=== PATIENT | male | born 1960 | race Caucasian/White ===

== ENCOUNTER 2018-05-02 16:23 | Emergency (ER) | payer MEDICAID, SELFPAY ==
[2018-05-02 16:24] VITALS: BP 164/118; PULSE 75; RESP 16; TEMP 37.1; O2SAT 95; BMI 43.4
--- NOTE | 2018-05-02 17:16 | CT_ITS ---
STUDY: CT ABDOMEN AND PELVIS WITHOUT CONTRAST REASON FOR EXAM: Male, 57 years old. Right groin pain. RADIATION DOSAGE (If Supplied By Facility): CTDIvol = ( 23.78 ) mGy, DLP = ( 1336.53 ) mGycm TECHNIQUE: Transaxial images were obtained from the dome of the diaphragm to the symphysis pubis without oral contrast, and without intravenous contrast. Sagittal and coronal images were reconstructed. Individualized dose optimization techniques were used for this CT. COMPARISON: None. FINDINGS: The visualized lung bases are unremarkable. The visualized portions of the heart are within normal limits. There is decreased attenuation of the liver consistent with steatosis. Normal gallbladder and extrahepatic biliary system. Normal spleen. Normal pancreas. Normal bilateral adrenal glands. Right kidney has no acute abnormalities. There is a 1.6 cm probable cyst of the lower pole. No hydronephrosis. Left kidney is within normal limits. Evaluation of the GI tract is limited by absence of oral contrast. Cannot exclude stomach wall thickening. No dilated loops of bowel or evidence for obstruction. Cannot exclude segmental thickening of the monzon of the small or large bowel. Cannot exclude enteritis or colitis. Moderate diffuse fecal retention. There has been an appendectomy. Normal abdominal aorta. Normal inferior vena cava. Normal retroperitoneum. Normal urinary bladder. There are prostatic calcifications. Normal abdominal wall. Normal osseous structures. CT/Abdomen/Pelvis without Cont IMPRESSION: No definite acute abnormality. Electronically Signed: Mk Denton MD at 18:31 EST , Service support ,
--- NOTE | 2018-05-02 17:17 | US_ITS ---
STUDY: SCROTUM ULTRASOUND REASON FOR EXAM: Male, 57 years old. Pain and swelling TECHNIQUE: Ultrasound evaluation of the scrotum was performed with color Doppler and static desouza-scale imaging. COMPARISON: None. FINDINGS: RIGHT TESTICLE INTRATESTICULAR: There is a normal size of the right testicle. The right testicle measures 4.0 x 3.1 x 2.5 cm. There is a homogenous echotexture. There is normal arterial and normal venous vascularity. There is no demonstrated right testicular mass or cyst. EXTRATESTICULAR: The epididymis is normal in size. The epididymis head measures 0.9 cm. There is normal vascularity of the epididymis. There is no demonstrated epididymal cystic structure. There is a large hydrocele. There are septations. There is no demonstrated varicocele. There is no demonstrated extratesticular mass or cyst. LEFT TESTICLE INTRATESTICULAR: There is a normal size of the left testicle. The left testicle measures 5.0 x 2.9 x 2.8 cm. There is a homogenous echotexture. There is normal arterial and normal venous vascularity. There is no demonstrated left testicular mass or cyst. EXTRATESTICULAR: The epididymis is normal in size. The epididymis head measures 1.4 cm. There is normal vascularity of the epididymis. There is no demonstrated epididymal cystic structure. There is a moderate size hydrocele. There is no demonstrated varicocele. There is no demonstrated extratesticular mass or cyst. US/Testicular with Arterial Flow IMPRESSION: Normal bilateral testicles. No evidence for torsion. Bilateral moderate to large hydroceles, larger on the right. Electronically Signed: Mk Denton MD at 18:23 EST , Service support ,
--- NOTE | 2018-05-02 17:21 | ED.DCSUM_ITS ---
- ER Visit Summary Date of Service: 05/02/18 Chief Complaint: Groin pain History of Present Illness: The patient is a 57 M presenting with right-sided groin pain and right lower quadrant abdominal pain. He states this began a month ago. He went to [facility] today and was sent to the ED for further evaluation. He has history of previous appendectomy and previous right testicular surgery. He states his testicular surgery was 15 years ago he does not know what was done at that time. He complains of pain and swelling in his right groin for the past month. He denies fever. Denies dysuria. He complains of hematuria which has been persistent since last summer. Denies other complaints. Physical Examination: Vitals are stable. Patient is afebrile. Alert no acute distress. HEENT exam is unremarkable. Neck is supple. Lungs are clear and equal bilaterally. Heart is regular rate and rhythm. Abdomen is soft nontender nondistended. right testicular tenderness, normal lie Extremities are unremarkable. Skin is warm and dry. Remainder of exam is unremarkable. Emergency Department Course and Treatment: Testicular ultrasound shows normal bilateral testicles. No evidence for torsion. Bilateral moderate to large hydroceles, larger on the right. CT abdomen pelvis shows no acute process. CBC unremarkable other than hemoglobin 19.6. Chemistries unremarkable. Urinalysis unremarkable. On reevaluation, patient is resting comfortably. Discussed with Dr. Lowe for outpatient follow-up. Advised return to ED if worsening complaints. Disposition: Discharge home Impression: Groin pain, bilateral hydroceles This note was generated with Minted dictation software. It may contain incorrect words, spelling, and punctuation that were not noted in review of the chart prior to signing ED Disposition - Plan for ED Patient: Instructions: ED Hydrocele Type Not Specified, ED Neck Back Pain General Referrals: Derrick Lowe MD [STAFF PHYSICIAN] -
[2018-05-02] MEDS: Ondansetron 4 MG/2 ML Vial IV (17:30)
[2018-05-02] MEDS: Morphine 4 MG/ML Syringe IV (17:30)
[2018-05-02 17:38] LABS: Anion Gap 8 (5-15); BUN 14 mg/dL (7-18); BUN/Creat Ratio 14.8 RATIO (10-20); Calcium,Total 9.3 mg/dL (8.5-10.1); Chloride 103 mmol/L (98-107); Creatinine, Serum 0.94 mg/dL (0.70-1.30); EST Glomerular Filtration Rate 88 mL/min (>60); Est Glom Filt Rate - Afr Amer 106 mL/min (>60); Estimated Creatinine Clearance 100.35 ml/min; Glucose 114 mg/dL (74-106); Potassium 4.4 mmol/L (3.5-5.1); Sodium Level 140 mmol/L (136-145)
[2018-05-02 17:45] LABS: Absolute Lymphocyte Count 2.39 X10^3/ul (0.83-4.51); Absolute Neutrophil Count 4.6 X10^3/uL (2.0-7.7); Basophil# 0.02 X10^3/uL; Basophil% 0.2 % (0-1); Eosinophil# 0.26 X10^3/uL; Eosinophils% 3.2 % (0-5); Lymphocyte # 2.39 X10^3/ul (4.0); Mean Corp Hgb Conc 34.1 g/gl (32-36); Mean Corpuscular Hgb 32.3 pg (27.0-32.0); Mean Corpuscular Volume 94.6 fL (80-94); Monocyte# 0.91 X10^3/uL; Monocyte% 11.1 % (0-10); Neutrophil # 4.64 X10^3/uL (2.7-7.7); Neutrophil % 56.4 % (47-70); Platelet Count 167 K/mm3 (150-450); RBC Distribution Width CV 12.2 % (11.6-14.6); RBC Distribution Width SD 42.6 fl (35.1-43.9); Red Blood Count 6.07 M/mm3 (4.6-6.2); White Blood Count 8.2 K/mm3 (4.4-11.0)
[2018-05-02 17:46] LABS: Hematocrit 57.4 % (40-54)
[2018-05-02 17:47] LABS: Hemoglobin 19.6 g/dl (13.0-16.5); POSITIVE COUNT NO; POSITIVE DIFFERENTIAL NO; POSITIVE MORPHOLOGY NO
[2018-05-02 18:35] LABS: Bacteria 0 SEEN /hpf (None Seen); Mucous, Urine 0 SEEN /hpf (<or=2+); Red Blood Cells-Urine 0 SEEN /hpf (0-5); Squamous Epithelial Cells - UA 0 SEEN /hpf (0-5); White Blood Cells 0 SEEN /hpf (0-5)
[2018-05-02 18:37] VITALS: RESP 14
[2018-05-02 18:52] LABS: Color, Urine Yellow (Yellow); Glucose, Dipstick Normal (Normal); Ketone-Dipstick Negative (Negative); Leukocyte Esterase-Dipstick Negative /ul (Negative); Nitrite-Dipstick Negative (Negative); Occult Blood-Urine Negative /ul (Negative); Protein-Dipstick 30 mg/dl (Negative); Urine Bilirubin Dipstick Negative (Negative); Urine Clarity Clear (Clear); Urine Urobilinogen Normal (Normal)
--- NOTE | 2018-05-02 20:03 | ED.DEP ---
ED Disposition - Plan for ED Patient: Instructions: ED Hydrocele Type Not Specified, ED Neck Back Pain General Referrals: Derrick Lowe MD [STAFF PHYSICIAN] -
[2018-05-02 20:26] VITALS: RESP 18; O2SAT 98
== END 2018-05-02 20:27 | disposition home or self-care (01) ==
LOC: ED 18:51
PROVIDERS: Emergency Provider Emergency Medicine; Referring Provider Nurse Practitioner Family
DX: N43.3 Hydrocele, unspecified (principal); R10.31 Right lower quadrant pain; R31.9 Hematuria, unspecified; Z72.0 Tobacco use
CPT/HCPCS: 74176; 76870; 80048; 81001; 85025; 93976; 96374; 96375; 99283; A4216; J2405

== ENCOUNTER → 2019-08-22 | Outpatient (CLI) | payer MEDICAID, SELFPAY ==
--- NOTE | 2019-08-22 13:09 | RAD_ITS ---
STUDY: X-RAY - THORACIC SPINE REASON FOR EXAM: Male, 59 years old. MID BACK PAIN WRAPS AROUND THROUGH ANTERIOR RIBS, FELT POP 3 WKS AGO ON LEFT SIDE SHARP PAIN ANTERIOR, THIS WEEK SAME ON RT SIDE TECHNIQUE: AP and lateral view(s) of the thoracic spine were obtained. COMPARISON: None. FINDINGS: Normal kyphosis of the thoracic spine. There is no substantial scoliosis. There is demineralization of the thoracic spine with endplate spondylosis. There is multilevel disc space narrowing of the thoracic spine. The soft tissue structures are unremarkable. RAD/Thoracic Spine 3 Views IMPRESSION: Multilevel spondylosis and disc space narrowing more prominent in the mid and lower thoracic region. Electronically Signed: Berlin Myers, at 14:46 EDT , Service support ,
--- NOTE | 2019-08-22 13:09 | RAD_ITS ---
STUDY: X-RAY - BILATERAL RIBS WITH CHEST REASON FOR EXAM: Male, 59 years old. MID BACK PAIN WRAPS AROUND THROUGH ANTERIOR RIBS, FELT POP 3 WKS AGO ON LEFT SIDE SHARP PAIN ANTERIOR, THIS WEEK SAME ON RT SIDE TECHNIQUE - RIBS: 4 view(s) of the ribs. TECHNIQUE - CHEST: Single PA view of the chest. COMPARISON: Comparison is made with prior chest radiograph dated July 05, 2010. FINDINGS - RIBS : Normal visualized ribs without a demonstrated fracture. FINDINGS - CHEST: The lungs are clear and expanded. There is no demonstrated pleural abnormality. Normal size heart. Normal mediastinum and eddie. There is prominence of the pulmonary hilar arteries without peripheral pulmonary vascular congestion, suggesting pulmonary hypertension. Normal visualized aortic arch and descending thoracic aorta. Normal visualized thoracic spine. Normal visualized ribs, clavicles, and shoulders. There is no demonstrated abnormality of the visualized soft tissue structures of the upper abdomen. RAD/Ribs Naveen Min 4V w/PA Chest IMPRESSION: RIBS: Normal x-ray examination of the bilateral ribs. CHEST: Normal x-ray examination of the chest. Electronically Signed: Berlin Myers, at 14:47 EDT , Service support ,
== END | disposition home or self-care (01) ==
LOC: RAD 13:06
PROVIDERS: Referring Provider Chiropractor; Visit Provider Chiropractor
DX: S23.3XXA Sprain of ligaments of thoracic spine, initial encounter (principal)
CPT/HCPCS: 71111; 72072

== ENCOUNTER → 2020-01-02 13:33 | Outpatient (CLI) | payer MEDICAID, SELFPAY ==
--- NOTE | 2020-01-02 13:45 | RAD_ITS ---
STUDY: X-RAY - LEFT KNEE REASON FOR EXAM: Male, 59 years old. LEFT KNEE SPRAIN. PAIN TO MEDIAL SIDE OF KNEE. TECHNIQUE: 4 view(s) of the knee. COMPARISON: None. FINDINGS: The knee is intact and located with minor age-appropriate changes. Soft tissues are unremarkable. RAD/Knee 4 or More Views IMPRESSION: Unremarkable for age knee. Electronically Signed: Kaushik Suarez, at 21:11 EDT Tel , Service support ,
== END | disposition home or self-care (01) ==
LOC: RAD 13:35
PROVIDERS: Referring Provider Chiropractor; Visit Provider Chiropractor
DX: S83.92XA Sprain of unspecified site of left knee, initial encounter (principal)
CPT/HCPCS: 73564

== ENCOUNTER → 2021-10-19 | Outpatient (CLI) | payer MEDICAID, SELFPAY ==
[2021-10-19 12:38] LABS: Absolute Lymphocyte Count 2.31 X10^3/uL (0.83-4.51); Absolute Neutrophil Count 5.3 X10^3/uL (2.0-7.7); Basophil# 0.05 X10^3/uL; Basophil% 0.6 % (0-1); Eosinophil# 0.23 X10^3/uL; Eosinophils% 2.6 % (0-5); Hematocrit 53.3 % (40-54); Hemoglobin 17.7 g/dL (13.0-16.5); Lymphocyte # 2.31 X10^3/ul (0.83-4.51); Mean Corp Hgb Conc 33.2 g/dL (32-36); Mean Corpuscular Hgb 31.8 pg (27.0-32.0); Mean Corpuscular Volume 95.7 fL (80-94); Mean Platelet Vol. 9.7 fl (6.2-12.0); Monocyte# 0.96 X10^3/uL; Monocyte% 10.8 % (0-10); NRBC Flagged by Analyzer 0 % (0-5); Neutrophil # 5.32 X10^3/uL (2.7-7.7); Neutrophil % 59.8 % (47-70); Platelet Count 222 K/mm3 (150-450); RBC Distribution Width CV 11.5 % (11.6-14.6); RBC Distribution Width SD 40.8 fl (35.1-43.9); Red Blood Count 5.57 M/mm3 (4.6-6.2); White Blood Count 8.9 K/mm3 (4.4-11.0)
[2021-10-19 13:07] LABS: Hemoglobin A1c 7.3 % (3.8-5.6)
[2021-10-19 13:09] LABS: ALB/GLOB Ratio 0.9 RATIO (0.9-2.4); AST(SGOT) 33 U/L (15-37); Alanine Aminotransfer ALT/SGPT 76 U/L (16-61); Albumin, Serum 3.6 g/dL (3.2-5.0); Alkaline Phosphatase 85 U/L (45-117); Anion Gap 4 (5-15); BUN 10 mg/dL (7-18); Calcium,Total 9.2 mg/dL (8.5-10.1); Chloride 104 mmol/L (98-107); Cholesterol 162 mg/dL (200); EST Glomerular Filtration Rate 81 mL/min (>60); Est Glom Filt Rate - Afr Amer 99 mL/min (>60); Globulin 3.9 g/dL (2.2-4.2); Glucose 145 mg/dL (74-106); High Density Lipoprotein 31 mg/dL; Potassium 4.5 mmol/L (3.5-5.1); Protein, Total 7.5 g/dL (6.4-8.2); Sodium Level 137 mmol/L (136-145); Triglycerides 165 mg/dL; Very Low Density Lipoprotein 33 mg/dL (5-40)
== END | disposition home or self-care (01) ==
LOC: BIMLAB 08:29
PROVIDERS: PCP Internal Medicine; Visit Provider Internal Medicine
DX: M79.672 Pain in left foot (principal); Z13.6 Encounter for screening for cardiovascular disorders; Z13.1 Encounter for screening for diabetes mellitus
CPT/HCPCS: 36415; 80053; 80061; 83036; 84550; 85025

== ENCOUNTER 2021-10-22 09:49 | Emergency (ER) | payer MEDICAID, SELFPAY ==
[2021-10-22 09:49] VITALS: BP 134/86; PULSE 70; RESP 18; TEMP 35.8; O2SAT 97; BMI 39.6
--- NOTE | 2021-10-22 10:16 | RAD_ITS ---
STUDY: X-RAY - RIGHT FOOT CLINICAL: Male, 61 years old. pain first MTPJ w/ foot swelling TECHNIQUE: 4 view(s) of the foot. COMPARISON: None. FINDINGS: Normal talus, calcaneus, and tarsal bones. Normal visualized subtalar, talonavicular, calcaneocuboid, tarsal and tarsometatarsal articulations. Normal metatarsi. Normal metatarsophalangeal joint of the great toe. Normal tibial and fibular sesamoid bones. Normal interphalangeal joint of the great toe. Normal phalanges of the great toe. Normal second through fifth metatarsophalangeal joints. Normal interphalangeal joints and phalanges of the lesser toes. Mild soft tissue swelling is seen over the dorsum of the forefoot. There is no demonstrated fracture. RAD/Foot min 3 Views IMPRESSION: 1. Mild soft tissue swelling over the dorsum of the forefoot Electronically Signed: Douglas Cabrera MD at 11:32 EDT ,
--- NOTE | 2021-10-22 10:25 | EDS_ITS ---
HPI History of Present Illness Chief Complaint: Lower Extremity Injury Onset/Context/Timing Onset: Weeks (7) Context: Sudden Onset Timing: Continuous Quality of Pain: Burning Location: Right first ray/foot Current Severity: Severe Maximum Severity: Severe Worsened by: Touching area moving first toe Relieved by: Resting and remaining still Associated Symptoms Associated Symptoms: Negative for Parasthesia or Weakness Narrative Narrative: Patient has been having pain in the right foot for the past 7 weeks. He states he woke up 1 morning with it. He has seen urgent care twice, he states the fi rst time they put him on prednisone because they thought clinically it look like gout, he states by the time he started that he was starting to get pain at the same area of the left foot, and the prednisone completely took that away but did not take the pain in the right foot away. He went back and they put him on an unknown medication, his PCP documented that it was colchicine, he states it did not help the pain. He finished the prednisone. He went to his PCP, he had some blood work, and she started him on allopurinol several days ago and he states the pain is worse. He denies any systemic symptoms or fevers. He denies any injury to this area. The pain is focused around the right first MTPJ, he has developed a redness and erythema throughout the base of the toes and the forefoot, but the majority of it is in the first ray. That he denies any pain in the midfoot or hindfoot or ankle. He states it hurts just to have a sheet on it, especially to move it. Picking it up off the ground hurts more than to put weight on it. [facility] Medical History Essential hypertension Type 2 diabetes mellitus Home Medications albuterol sulfate 90 mcg/actuation aerosol inhaler 1 puff inhalation Q6H PRN shortness of breath or wheezing #6.7 grams 10/18/21 [Rx Last Taken Unknown] nicotine 21 mg/24 hr daily transdermal patch 1 patch transdermal DAILY #28 ea 10/18/21 [Rx Last Taken Unknown] amoxicillin 875 mg-potassium clavulanate 125 mg tablet 875 mg PO Q12H #20 TABLETS 10/22/21 [Rx Last Taken Unknown] Allergy/AdvReac Type Severity Reaction Status Date / Time No Known Allergies Allergy Verified 10/22/21 10:39 Family History (Updated 10/18/21 @ 15:09 by Charlette Dangelo) Other Family history not known due to adoption Surgical History (Updated 10/18/21 @ 15:[address] Shruti Carvajal MD) History of appendectomy Social History household members: none current occupational status: unemployed Smoking Status: Current every day smoker tobacco type: cigarettes Tobacco: How many years used: 40 Electronic Cigarette Use: not used alcohol intake: former substance use type: does not use what type of physical activity do you participate in: none do you feel safe at home: Yes ROS ROS ED Constitutional Constitutional ED: Denies chills or fever(s) Musculoskeletal Musculoskeletal: Reports extremity pain; Denies neck pain Integumentary Denies Abrasions, rash or wounds Neurologic Neurologic: Denies paresthesias or weakness EXAM Physical Exam Const Vital Signs: 10/22/21 09:49 Temperature 96.5 F L Temperature Source Temporal Pulse Rate 70 Respiratory Rate 18 Blood Pressure 134/86 H Blood Pressure Mean 102 Pulse Ox 97 Oxygen Delivery Method Room Air Positive well nourished and well developed General Appearance ED: well developed and NAD Neck full ROM and supple Back/Spine normal ROM and normal to inspection Extremity Extremity Narrative: Swollen erythematous right first MTPJ. Significant pain there with even very little short arc range of motion of the great toe. There are no other areas of significant tenderness although he is mildly tender just into the distal aspect medially in the arch. No abscess. No lymphangitis. No other areas of tenderness or limited range of motion including the rest of the toes. Brisk cap refill distally although pulses on both feet are difficult to feel. Neuro oriented x3, no focal motor deficits and no sensory deficits noted Sensorium / Orientation: alert Psych mental status grossly normal and thought process normal Skin no wounds Skin Narrative: Erythema right medial forefoot see above. No lymphangitis. No abscess. No nidus for infection. Rashes: no rashes MDM MDM MDM Narrative Medical decision making narrative: If this patient has gout, I would expect an acute flareup to worsen while on allopurinol, which seems to have happened over the last 3 days, but I would also expect him to have gotten better on prednisone which did not occur. Therefore a undertook more work-up, given that a septic arthritis is certainly in the differential although he has no reason to have that. I told the patient best way to figure this out would be to do a joint fluid aspiration. After discussing pros and cons and providing informed consent he was amenable to that and it was done see the procedure note. We did not have any crystals come back positive per the lab. Culture was sent. There was not enough fluid to do cell counts. Given this in the differential including septic arthritis, I discussed with Dr. Cote he came and saw the patient and agreed with my management and repeated the arthrocentesis, and also injected dexamethasone into the patient's joint, he agrees that this is suspicious for gout or pseudogout, we are putting the patient on antibiotics until his cultures come back, given him a boot, and he will follow-up in the office as an outpatient. Patient is comfortable with that overall plan. Lab Data Attestation: I reviewed the patient's lab results. Labs: Laboratory Results - last 24 hr 10/22/21 10/22/21 10/22/21 10:35 10:35 12:10 WBC 7.5 RBC 5.47 Hgb 17.5 H Hct 51.8 MCV 94.7 H MCH 32.0 MCHC 33.8 RDW Std Deviation 39.7 RDW Coeff of Cheryl 11.3 L Plt Count 219 MPV 9.4 Immature Gran % (Auto) 0.300 Neut % (Auto) 57.4 Lymph % (Auto) 27.4 Traverse % (Auto) 10.4 H Eos % (Auto) 4.1 Baso % (Auto) 0.4 Absolute Neuts (auto) 4.3 Absolute Lymphs (auto) 2.05 Nucleated RBC % 0 ESR 25 H Sodium 139 Potassium 4.5 Chloride 106 Carbon Dioxide 30.0 Anion Gap 3 L BUN 9 Creatinine 0.99 Estim Creat Clear Calc 90.80 Est GFR (MDRD) Af Amer 100 Est GFR (MDRD) Non-Af 82 BUN/Creatinine Ratio 9.1 L Glucose 146 H Calcium 9.5 C-React Prot Ext Range 28.20 H Fluid Source Cancelled Fluid Color Cancelled Fluid Appearance Cancelled Fluid WBC Cancelled Fluid RBC Cancelled Fluid Tot Cell Count Cancelled Fld Polynuclear WBCs # Cancelled Fld Polynuclear WBCs % Cancelled Fluid Mononuclear WBCs Cancelled Fld Mononuclear WBCs % Cancelled Fluid Neutrophils Cancelled Fluid Lymphocytes Cancelled Fluid Monocytes Cancelled Fluid Plasma Cells Cancelled Fluid Macrophages Cancelled Fld Mesothelial Cells Cancelled Fluid Other Cells Cancelled Fluid Crystals Cancelled Fluid Crystal Source Cancelled Fl Crystal Path Review Cancelled Fl Pathologist Comment Cancelled Fluid Comment 2 Cancelled 10/22/21 12:10 WBC RBC Hgb Hct MCV MCH MCHC RDW Std Deviation RDW Coeff of Cheryl Plt Count MPV Immature Gran % (Auto) Neut % (Auto) Lymph % (Auto) Traverse % (Auto) Eos % (Auto) Baso % (Auto) Absolute Neuts (auto) Absolute Lymphs (auto) Nucleated RBC % ESR Sodium Potassium Chloride Carbon Dioxide Anion Gap BUN Creatinine Estim Creat Clear Calc Est GFR (MDRD) Af Amer Est GFR (MDRD) Non-Af BUN/Creatinine Ratio Glucose Calcium C-React Prot Ext Range Fluid Source Fluid Color Fluid Appearance Fluid WBC Fluid RBC Fluid Tot Cell Count Fld Polynuclear WBCs # Fld Polynuclear WBCs % Fluid Mononuclear WBCs Fld Mononuclear WBCs % Fluid Neutrophils Fluid Lymphocytes Fluid Monocytes Fluid Plasma Cells Fluid Macrophages Fld Mesothelial Cells Fluid Other Cells Fluid Crystals SEE PATH REV Fluid Crystal Source OTHER Fl Crystal Path Review Will follow Fl Pathologist Comment Fluid Comment 2 Radiography Diagnostic Testing: Clinical Impression(s) from Imaging Studies Foot X-Ray 10/22/21 10:16 IMPRESSION: 1. Mild soft tissue swelling over the dorsum of the forefoot Electronically Signed: Douglas Cabrera MD at 11:32 EDT Reading Location ID and State: [address] [place] [address] , Service support , Procedures Other Procedures Procedure(s): Right first MTPJ arthrocentesis: After sterile prep with isopropanol followed by Betadine, freeze spray followed by local 1% lidocaine 1 cc, I initially attempted from a dorsomedial approach to insert an 18-gauge needle into the joint, since I was unable I used the 25-gauge needle that I used for the lidocaine, and 1 point the patient and I both felt the needle dropped into the joint, I aspirated as much as I could it was mostly blood, about 0.5 cc total, and then withdrew the needle on cleansed, placed a bandage no complications otherwise except for some minor discomfort. Tolerated well. Discharge Plan Triage Chief Complaint: Lower Extremity Injury ED Provider: Abelardo Lockett Dx/Rx/DC Orders Clinical Impression: Arthritis of first metatarsophalangeal (MTP) joint of right foot Instructions: ED Gout Prescriptions: New amoxicillin-pot clavulanate [amoxicillin-pot clavulanate] 875-125 mg tablet 875 mg PO Q12H Qty: 20 0RF Continued nicotine 21 mg/24 hr patch 24 hour 1 patch transdermal DAILY Qty: 28 0RF albuterol sulfate 90 mcg/actuation HFA aerosol inhaler 1 puff inhalation Q6H PRN (Reason: shortness of breath or wheezing) Qty: 6.7 0RF Discontinued prednisone 20 mg tablet See Taper PO DAILY Taper: Prednisone Taper 60 tab WITH BREAKFAST for 3 Days and 0 Hour 50 tab WITH BREAKFAST for 3 Days and 0 Hour 40 tab WITH BREAKFAST for 3 Days and 0 Hour 30 tab WITH BREAKFAST for 3 Days and 0 Hour 20 tab WITH BREAKFAST for 3 Days and 0 Hour 10 tab WITH BREAKFAST for 3 Days and 0 Hour Label Comments: take 3 tablets by mouth once daily for 3 days then 2 once daily f... (REFER TO PRESCRIPTION NOTES). colchicine 0.6 mg tablet 1 tab PO BID Label Comments: take 1 tablet by mouth twice a day for 1 day allopurinol 100 mg tablet 100 mg PO DAILY Qty: 30 1RF Primary Care Provider: Shruti Carvajal Referrals: Shruti Carvajal MD [Primary Care Provider] - Jose Antonio Cote DPM [Med Staff - Active Staff] - 10/25/21 9:00 am Disposition Disposition: Home, Self Care
[2021-10-22 10:55] LABS: Erythrocyte Sedimentation Rate 25 mm/hr (0-20)
[2021-10-22 10:59] LABS: Absolute Lymphocyte Count 2.05 X10^3/uL (0.83-4.51); Absolute Neutrophil Count 4.3 X10^3/uL (2.0-7.7); Basophil# 0.03 X10^3/uL; Basophil% 0.4 % (0-1); Eosinophil# 0.31 X10^3/uL; Eosinophils% 4.1 % (0-5); Hematocrit 51.8 % (40-54); Hemoglobin 17.5 g/dL (13.0-16.5); Lymphocyte # 2.05 X10^3/ul (0.83-4.51); Lymphocyte % 27.4 % (19-41); Mean Corp Hgb Conc 33.8 g/dL (32-36); Mean Corpuscular Volume 94.7 fL (80-94); Mean Platelet Vol. 9.4 fl (6.2-12.0); Monocyte# 0.78 X10^3/uL; Monocyte% 10.4 % (0-10); NRBC Flagged by Analyzer 0 % (0-5); Neutrophil % 57.4 % (47-70); Platelet Count 219 K/mm3 (150-450); RBC Distribution Width CV 11.3 % (11.6-14.6); RBC Distribution Width SD 39.7 fl (35.1-43.9); Red Blood Count 5.47 M/mm3 (4.6-6.2); White Blood Count 7.5 K/mm3 (4.4-11.0)
[2021-10-22 11:04] LABS: Anion Gap 3 (5-15); BUN 9 mg/dL (7-18); BUN/Creat Ratio 9.1 RATIO (10-20); Calcium,Total 9.5 mg/dL (8.5-10.1); Chloride 106 mmol/L (98-107); Creatinine, Serum 0.99 mg/dL (0.70-1.30); EST Glomerular Filtration Rate 82 mL/min (>60); Est Glom Filt Rate - Afr Amer 100 mL/min (>60); Glucose 146 mg/dL (74-106); Potassium 4.5 mmol/L (3.5-5.1); Sodium Level 139 mmol/L (136-145)
[2021-10-22] MEDS: Lidocaine 1% (20 ml mdv) 20 ML Vial INFILT (13:00)
[2021-10-22 14:28] LABS: Body Fluid QC Type(s) BF1Q; Source- Body Fluid OTHER
[2021-10-22] MEDS: Amox/Clavulanate 875 MG Tablet PO (17:30)
[2021-10-22 17:33] VITALS: PULSE 63; RESP 15; O2SAT 98
--- NOTE | 2021-10-22 18:10 | PCM.CONS.GEN ---
Assessment & Plan Assessment/Plan (1) Right foot pain: (2) Arthritis of first metatarsophalangeal (MTP) joint of right foot: (3) Gout of right foot: PLAN: Plan Evaluation performed. Reviewed labs and right foot xrays. WBC normal. Patient is afebrile. Xrays of right foot with DJD changes to the 1st MTPJ. Clinically findings are c/w gout. Discussed option of repeat aspiration, and also corticosteroid injection. Reviewed possible benefits vs risks. PAtient reviewed and signed consent form for aspiration procedure, and he consented to corticosteroid injection as well - reviewed possible risk include but not limited to infection, pain, need for further procedure, worsening, high blood sugars. He expressed understanding and agreement and wanted to do repeat aspiration and corticosteroid injection to right 1st MTPJ today. After consent obtained, the skin was cleansed with 70% Isopropyl alcohol. A total of 10mL of 1% Lidocaine plain was given as a right 1st ray block, then the 1st MTPJ was aspirated using an 18 guage needle - small amount of blood aspirate obtained - this was cultured and sent to microbiology - also sent to pathology for crystal analysis. There were no visible crystals prior to sending, also no purulence, no necrosis and no evidence of infection noted. 1mL of 4mg/ml of Dexamethasone phosphate was injected to and around right 1st MTPJ following the aspiration after the skin was again cleansed with 70% Isopropyl alcohol. He tolerated well with no complications. A bandaid dressing applied - ok to remove tomorrow. Reviewed rest therapy. A CAM Walker boot was ordered for him to keep foot protected. Avoid icing foot, also due to concern for acute gout d/c allopurinol at this time. Augmentin 875/125mg PO q 12 hour was prescribed precautionary. Patient to follow up with me in office on Monday - sooner if needed. HPI Consult Data Date of Consult: 10/22/21 HPI Narrative Reason for Consultation: right foot pain HPI Narrative: ILENE ESPINOZA, is a 61 M who presents to [facility] ER relating to significant right foot pain- he points to 1st MTPJ. I was called by ER physician. Patient relates this has been going on for 6-7 weeks - ever since September 20 this year. He relates he has trouble sleeping at night. He relates he started getting similar symptoms in left foot 1st toe joint. Patient has been treated with course of prednisone which took left foot pain away but not right foot pain. He was then treated with colchicine, but did not help. He started allopurinol 3 days ago, but made it worse. He tried icing which made it worse. There are no wounds, and no drainage. Patient's WBC is normal. He is afebrile. Had aspiration completed earlier today which was negative for crystals, just had bloody drainage. Patient is diabetic relates his recent ha1c was 7.3. He is here with his friend. [facility] Medical History Essential hypertension Type 2 diabetes mellitus Home Medications albuterol sulfate 90 mcg/actuation aerosol inhaler 1 puff inhalation Q6H PRN shortness of breath or wheezing #6.7 grams 10/18/21 [Rx Last Taken Unknown] nicotine 21 mg/24 hr daily transdermal patch 1 patch transdermal DAILY #28 ea 10/18/21 [Rx Last Taken Unknown] amoxicillin 875 mg-potassium clavulanate 125 mg tablet 875 mg PO Q12H #20 TABLETS 10/22/21 [Rx Last Taken Unknown] Allergy/AdvReac Type Severity Reaction Status Date / Time No Known Allergies Allergy Verified 10/22/21 10:39 Family History (Updated 10/18/21 @ 15:09 by Charlette Dangelo) Other Family history not known due to adoption Surgical History (Updated 10/18/21 @ 15:[address] Shruti Carvajal MD) History of appendectomy Social History household members: none current occupational status: unemployed Smoking Status: Current every day smoker tobacco type: cigarettes Tobacco: How many years used: 40 Electronic Cigarette Use: not used alcohol intake: former substance use type: does not use what type of physical activity do you participate in: none do you feel safe at home: Yes Physical Exam Const alert, oriented x3 and no apparent distress Extremity Extremity Narrative: Right foot with edema, and no cellulitis is noted, there are no open lesions, no necrosis, no blistering, no fluctuance, no crepitus, no visible abscess noted, there is significant POP to the 1st MTPJ c/w gout with limited ROM, no other POP or pain on ROM to foot or ankle bilateral. No open lesions left foot, no evidence of infection. Sensation intact to foot / ankle bilateral, CFT < 2 seconds to all toes, pedal pulses palpable bilateral, no calf pain bilateral, muscle strength intact to foot and ankle. No evidence of acute ischemia to the foot or ankle bilateral. Lab / Micro Data Result Diagrams: 10/22/21 10:35 10/22/21 10:35 Labs: Laboratory Results - last 24 hr 10/22/21 10:35: WBC 7.5, RBC 5.47, Hgb 17.5 H, Hct 51.8, MCV 94.7 H, MCH 32.0, MCHC 33.8, RDW Std Deviation 39.7, RDW Coeff of Cheryl 11.3 L, Plt Count 219, MPV 9.4, Immature Gran % (Auto) 0.300, Neut % (Auto) 57.4, Lymph % (Auto) 27.4, Elbert % (Auto) 10.4 H, Eos % (Auto) 4.1, Baso % (Auto) 0.4, Absolute Neuts (auto) 4.3, Absolute Lymphs (auto) 2.05, Nucleated RBC % 0, ESR 25 H 10/22/21 10:35: Sodium 139, Potassium 4.5, Chloride 106, Carbon Dioxide 30.0, Anion Gap 3 L, BUN 9, Creatinine 0.99, Estim Creat Clear Calc 90.80, Est GFR (MDRD) Af Amer 100, Est GFR (MDRD) Non-Af 82, BUN/Creatinine Ratio 9.1 L, Glucose 146 H, Calcium 9.5, C-React Prot Ext Range 28.20 H 10/22/21 12:10: Fluid Source Cancelled, Fluid Color Cancelled, Fluid Appearance Cancelled, Fluid WBC Cancelled, Fluid RBC Cancelled, Fluid Tot Cell Count Cancelled, Fld Polynuclear WBCs # Cancelled, Fld Polynuclear WBCs % Cancelled, Fluid Mononuclear WBCs Cancelled, Fld Mononuclear WBCs % Cancelled, Fluid Neutrophils Cancelled, Fluid Lymphocytes Cancelled, Fluid Monocytes Cancelled, Fluid Plasma Cells Cancelled, Fluid Macrophages Cancelled, Fld Mesothelial Cells Cancelled, Fluid Other Cells Cancelled, Fluid Crystals Cancelled, Fluid Crystal Source Cancelled, Fl Crystal Path Review Cancelled, Fl Pathologist Comment Cancelled, Fluid Comment 2 Cancelled 10/22/21 12:10: Fluid Crystals SEE PATH REV, Fluid Crystal Source OTHER, Fl Crystal Path Review Will follow Micro: Microbiology 10/22/21 12:10 Fluid - Other Gram Stain - Final Radiology Impression Foot X-Ray 10/22/21 10:16 IMPRESSION: 1. Mild soft tissue swelling over the dorsum of the forefoot Electronically Signed: Douglas Cabrera MD at 11:32 EDT Reading Location ID and State: [facility] / [place] , Service support ,
[2021-10-22 18:43] LABS: Body Fluid QC Type(s) BF2Q; CRYSTALS, BODY FLUID See PATH REV; Source- Body Fluid OTHER
[2021-10-22 19:10] LABS: M R Staph aureus DNA By PCR Negative (Negative); Probe Check PASS; Specimen Processing Control PASS; Staph aureus DNA By PCR NEGATIVE (Negative)
[2021-10-25 12:19] LABS: Pathologist Review Reviewed
[2021-10-25 12:20] LABS: Pathologist Review Reviewed
== END 2021-10-22 17:30 | disposition home or self-care (01) ==
PROVIDERS: Podiatrist; Emergency Provider Emergency Medicine; PCP Internal Medicine; Visit Provider Emergency Medicine
DX: M19.071 Primary osteoarthritis, right ankle and foot (principal); E11.9 Type 2 diabetes mellitus without complications; I10 Essential (primary) hypertension; F17.210 Nicotine dependence, cigarettes, uncomplicated; M10.071 Idiopathic gout, right ankle and foot; Z79.899 Other long term (current) drug therapy
CPT/HCPCS: 20600; 20610; 73630; 80048; 85025; 85652; 86140; 87070; 87075; 87205; 87640; 89060; 99283; A4216

== ENCOUNTER 2021-10-28 16:18 | Emergency (ER) | payer MEDICAID, SELFPAY ==
[2021-10-28 16:19] VITALS: BP 147/109; PULSE 81; RESP 18; TEMP 36.8; O2SAT 96; BMI 41.8
[2021-10-28] MEDS: predniSONE 20 MG Tablet 60 MG PO (16:45)
[2021-10-28] MEDS: Ketorolac 15 MG/ML Vial IV (16:46)
--- NOTE | 2021-10-28 18:13 | EDS_ITS ---
HPI History of Present Illness Chief Complaint: Lower Extremity Injury Detail of Chief Complaint: Bilateral great toe pain Informant: patient Occured/Mechanism Comment: History of gout Onset/Context/Timing Onset: Today (Left toe today) and Days (Right toe earlier this week) Context: Sudden Onset Timing: Continuous Quality of Pain: Dull, Aching and Throbbing Current Severity: Moderate Maximum Severity: Severe Worsened by: Putting on a sock, putting on his shoe, weightbearing or movement Relieved by: Nothing Associated Symptoms Associated Symptoms: Negative for Parasthesia or Weakness Narrative Narrative: Patient is a 61-year-old male who was seen earlier this week by podiatry and treated for gouty arthritis of his right great toe. He had an intra-articular injection performed. Patient denies fever, chills night sweats. Patient is not on a thiazide diuretic. Patient denies trauma. Patient denies symptoms of c laudication. Patient informed that his last A1c is 7.3. Tetanus Immunization: 5-10 years Prior similar symptoms: Yes Recent Illness/Hospitalization: Yes PFSH PFSH Medical History Essential hypertension Type 2 diabetes mellitus Home Medications albuterol sulfate 90 mcg/actuation aerosol inhaler 1 puff inhalation Q6H PRN shortness of breath or wheezing #6.7 grams 10/18/21 [Rx Last Taken Unknown] nicotine 21 mg/24 hr daily transdermal patch 1 patch transdermal DAILY #28 ea 10/18/21 [Rx Last Taken Unknown] amoxicillin 875 mg-potassium clavulanate 125 mg tablet 875 mg PO Q12H #20 TABLETS 10/22/21 [Rx Last Taken Unknown] prednisone 20 mg tablet 60 mg PO DAILY #15 TABLETS 10/28/21 [Rx Last Taken Unknown] Allergy/AdvReac Type Severity Reaction Status Date / Time No Known Allergies Allergy Verified 10/28/21 16:19 Family History Other Family history not known due to adoption Surgical History History of appendectomy Social History household members: none current occupational status: unemployed Smoking Status: Current every day smoker tobacco type: cigars Tobacco: How many years used: 40 Electronic Cigarette Use: not used alcohol intake: former substance use type: does not use what type of physical activity do you participate in: none do you feel safe at home: Yes ROS ROS ED Constitutional Constitutional ED: Denies chills, fever(s), subjective, sweats or weight loss Musculoskeletal Musculoskeletal: Reports other Details: Right and left great toe pain ; Denies arthralgias, back pain, myalgias or neck pain Integumentary Denies abscess, Abrasions or rash Neurologic Neurologic: Denies paresthesias or weakness Endocrine Endocrinology: Denies polydipsia, polyphagia or polyuria Hematologic/Lymphatic Hematologic/Lymphatic: Denies easy bleeding or easy bruising EXAM Physical Exam Const Vital Signs: 10/28/21 16:19 Temperature 98.2 F Temperature Source Temporal Pulse Rate 81 Respiratory Rate 18 Blood Pressure 147/109 H Blood Pressure Mean 121 Pulse Ox 96 Oxygen Delivery Method Room Air Positive well nourished, well developed, obese and unkempt General Appearance ED: unkempt and well developed; Negative for NAD Nutritional Appearance: obese HEENT Reports moist mucous membranes normocephalic and atraumatic Eyes PERRL Eyes Narrative: Extract muscle intact. Sclera is anicteric. Conjunctive is pink. Neck full ROM and supple Resp normal respiratory effort Cardio regular rate and regular rhythm Extremity Negative for normal to inspection Extremity Narrative: There is slight erythema or warmth over the MTP joint of the left and right great toe. There is no evidence of cellulitis. DP and PT pulse are palpable. He does have hair on his toes. He has no stigmata of peripheral arterial disease. General Extremety ED: Yes weight-bearing difficulty; Negative for cyanosis or edema General Extremity: weight-bearing difficulty; Negative for cyanosis or edema Neuro oriented x3, CN's II-XII intact bilaterally, moves all extremities and no sensory deficits noted Sensorium / Orientation: alert Motor Exam: strength 5/5 throughout Psych mental status grossly normal Appearance: unkempt Skin no wounds Lesions: no lesions Trauma: Negative for abrasion MDM MDM MDM Narrative Medical decision making narrative: Patient's history and physical exam is consistent with acute gouty arthritis. Prior labs were reviewed. He was treated with 50 mg of ketorolac IV push and 60 mg of prednisone. He was discharged prescription for prednisone. Patient was reassessed and reports marked improvement. He states he is now able to move his toes without having pain. Discharge Plan Triage Chief Complaint: Lower Extremity Injury ED Provider: Jose Alejandro Lazar Dx/Rx/DC Orders Clinical Impression: Gouty arthritis of left great toe, Gouty arthritis of right great toe, Diabetes Instructions: ED Diabetic Hyperglycemia, ED Gout, ED Gout Diet Prescriptions: New prednisone 20 mg tablet 60 mg PO DAILY Qty: 15 0RF No Action nicotine 21 mg/24 hr patch 24 hour 1 patch transdermal DAILY Qty: 28 0RF albuterol sulfate 90 mcg/actuation HFA aerosol inhaler 1 puff inhalation Q6H PRN (Reason: shortness of breath or wheezing) Qty: 6.7 0RF amoxicillin-pot clavulanate [amoxicillin-pot clavulanate] 875-125 mg tablet 875 mg PO Q12H Qty: 20 0RF Primary Care Provider: Shruti Carvajal Referrals: Shruti Carvajal MD [Primary Care Provider] - 1 Week Activity Restrictions/Additional Instructions: You will need to follow-up with Dr. Eden for blood sugar recheck in 3 to 4 days. Recommend that you discuss with Dr. Moore treatment with oral medication for your diabetes. Disposition Disposition: Home, Self Care Discharge Date/Time: 10/28/21 18:20
[2021-10-28 18:20] VITALS: RESP 18
== END 2021-10-28 18:20 | disposition home or self-care (01) ==
LOC: ED 17:20
PROVIDERS: Emergency Provider Emergency Medicine; PCP Internal Medicine; Visit Provider Emergency Medicine
DX: M10.9 Gout, unspecified (principal); E11.9 Type 2 diabetes mellitus without complications; F17.290 Nicotine dependence, other tobacco product, uncomplicated; M79.675 Pain in left toe(s); M79.674 Pain in right toe(s); I10 Essential (primary) hypertension; E66.9 Obesity, unspecified; Z79.52 Long term (current) use of systemic steroids
CPT/HCPCS: 96374; 99284; A4216